=== PATIENT | female | born 1940 | race Caucasian/White ===

== ENCOUNTER 2018-09-28 18:12 | Inpatient (IN) | payer OTHER ==
[~2018-09-28] VITALS: Ht 152.4 cm; Wt 45.4 kg
[~2018-09-28 18:12] MED LIST: ABILIFY 2 MG2 M1 PO; ACCUNEB SO1.25 MG/1 INH; ACETAMINOPHEN325 M1 PO; ALBUTEROL2.5 MG/31 INH; ALBUTEROL2.5 MG/32 IH; ARICEPT10 M1 PO; ATIVAN0.5 MG PO; ATROVENT15 ML NS; BUSPAR 5 MG TABL5 M1 PO; BUSPIRONE HCL7.5 MG PO; BUSPIRONE PO; CARVEDILOL3.125 MG PO; COLACE 100 MG100 MG PO; COMBIVENT INH; DILANTIN100 MG PO; DILTIAZEM ER120 M1 PO; DIVALPROEX SOD250 M3 PO; DOLOPHINE HCL10 MG PO; DOLOPHINE HCL5 MG PO; DUONEB 2.5-0.5 M3 ML INH; FERRO-TIME325 MG PO; IBUPROFEN 600600 M1 PO; LASIX 40 MG TAB40 M1 PO; LEXAPRO20 MG PO; LIPITOR 40 MG T40 M1 PO; MAG DELAY64 MG PO; MELADOX3 MG PO; MIRALAX255 GM PO; OXECTA5 MG PO; PRINIVIL10 MG PO; PROTONIX40 M2 PO; PULMICORT0.5 MG/22 INH; QUETIAPINE FUM100 MG PO; QUETIAPINE FUMA50 MG PO; SPIRIVA INH; THERA-M CAPLET1 EAC1 PO; TRAZODONE 150150 M1 PO; Trazodone PO; ZOFRAN8 MG PO; [UNRECOGNIZED DRUG - OTHER] TOP; [UNRECOGNIZED DRUG - OTHER] TOP
--- NOTE | 2018-09-28 23:47 | NUR ---
PT ARRIVED ON UNIT 204409/28/18 PER CART FROM [facility] PT CONFUSED, CONFRONTATIONAL, AND ARGUMENTATIVE UPON ARRIVAL. REFUSING TO ANSWER ANY QUESTIONS TO WHY SHE IS HERE. RECENT HX INCLUDES INCREASING ANXIETY AND INSOMNIA. ANGRY OUTBURSTS AT THE CARE CENTER. OCCASIONALLY COMBATIVE. MEDICAL HX INCLUDES ARTHRITIS WITH CHRONIC PAIN, HTN,DYSPHAGIA,COPD,HYPERLIPIDEMIA, AND UNSPECIFIED CONVULSIONS. NUMEROUS MEDICATIONS NOTED AND CLARIFIED. NEEDS RT CONSULT. USES INHALERS AT REHAB FACILITY. ABLE TO AMBULATE, BUT REFUSES TO USE WALKER AND WILL NOT ACCEPT PHYSICAL ASSIST WITHOUT ARGUMENT. EXPRESSED SOME RACIAL ANIMAS TOWARD STAFF.
[2018-09-29 01:02] VITALS: BP 184/98
[2018-09-29 01:18] VITALS: BP 184/98
[2018-09-29 08:00] VITALS: BP 171/95
--- NOTE | 2018-09-29 15:44 | NUR ---
DYSPHORIC/RESTLESS MOOD SO FAR THIS [id number] COOPERATIVE WITH MEDS AND REQUESTS FROM STAFF-REFUSED AM POTASSIUM,MAALOX AND FLU SHOT SCHEDULED FOR 0900 STATING "I DON'T HAVE ANY OF THOSE PROBLEMS WITH POTASSIUM OR THE FLU" ATTEMPTS TO EXPLAIN/EDUCATE MET WITH RESISTANCE AND APPEAR TO INCREASE AGITATION-PT STATES "I DON'T TRUST YOU-YOU DON'T KNOW ME HOW DO YOU KNOW WHAT I TAKE" PACING ALMOST CONSTANTLY IN HALLWAYS-TRYING EXIT DOORS REPEATDLY AND STATING SHE WANTS TO "GO OUTSIDE" JUST FOR A MINUTE-YOU CAN COME ALONG" ANXIOUS FACIAL EXPRESSION-PURSE LIPPED BREATHING AT TIMES AND REFUSES TO SIT AND REST WHEN ATTEMPTS MADE TO REDIRECT BY NURSING STAFF STATES " I WOULD KNOW IF I AM TIRED AND IM NOT" HAS REPORTED BACK PAIN RATED A 10 ON 1-10 SCALE-SCHEDULED METHADONE APPEARS TO DECREASE PAIN LEVEL BUT WITHIN 2 HRS OF ADMINISTRATION IS ASKING FOR MORE MEDICATION. TEARFUL WHEN SPEAKING ABOUT FAMILY MEMBERS WHO HAVE - NOTED ABOVE DOES APPEAR SUSPICIOUS OF STAFF-AND MEDICATIONS OFFERED STATING THEY WERN'T HERS, NO NOTED AUDITORY VISUAL HALLUCINATIONS PRESENT.
[2018-09-29 19:39] VITALS: BP 135/79
[2018-09-30 02:35] VITALS: BP 135/79
--- NOTE | 2018-09-30 03:02 | NUR ---
PT OUT IN DAY AREA INTERACTING WITH PEERS. INVASIVE AND OCCASIONALLY IRRITABLE. DEMANDING SHE GET HER MEDS EARLY "BECAUSE I AM IN PAIN AND WANT TO GO TO SLEEP". TOOK MEDS TO HER AFTER SNACKS, WHILE SHE WAS READING IN HER ROOM. BECAME TEARFUL WHEN TALKING HOW SHE MISSES FAMILY LONG ."I MISS THEM ALL". TOOK HS MEDS INCLUDING METHADONE FOR HER PAIN. OUT OF ROOM WITH WALKER ABOUT 30 MINUTES LATER CLAIMING TO STILL BE IN PAIN. ADVISED TO RETURN AND LIE DOWN AND GIVE MED A CHANCE TO WORK. ADVISED SHE COULD STILL HAVE TYLENOL NEEDED. RETURNED TO ROOM AND ALMOST IMMEDIATLY TO SLEEP. REMAINS ASLEEP OF THIS WRITING.
[2018-09-30 07:00] VITALS: BP 146/77
--- NOTE | 2018-09-30 13:13 | NUR ---
ASSUMED CARE AT 0715. HAS BEEN UP ON THE UNIT MUCH OF THE DAY. HAS BEEN INTERACTIVE WITH STAFF. HAD LABS DRAWN WITH USE OF THE DOPPLER AND THE IV TEAM HER VAINS WOULD ROLL WHEN LAB ATTEMPTED TO DRAW THEM. PT. UPSETS EASILY WHEN NOT ALLOWED TO DO SHE THINKS SHE DESIRES TO DO. TOOK MEDS WITHOUT PROBLEMS. ATE MEALS. REMAINS NEEDY AND ASKING FOR COMPANY OF STAFF/PEERS CONTINOUSLY.
[2018-09-30 13:16] LABS: ABSOLUTE NEUTROPHILS 2.9 thou/uL (1.4-8.2); BASOPHILS 0.7 % (0.0-2.0); EOSINOPHILS 3.2 % (0.0-3.0); HEMOGLOBIN 13.9 gm/dL (12.0-15.0); LYMPHOCYTES 26.8 % (24.0-44.0); MCH 32.6 pg (26.0-34.0); MCHC 33.9 g/dL (28.0-37.0); MONOCYTES 8.4 % (1.0-8.0); PLATELET COUNT 295 thou/uL (150-400); POLYS 60.9 % (36.0-66.0); RBC 4.28 mil/uL (4.20-5.00); RDW 12.9 % (10.5-14.5); WBC 4.7 thou/uL (4.0-11.0)
[2018-09-30 13:35] LABS: ALBUMIN 3.6 g/dL (3.4-5.0); CALCIUM 8.7 mg/dL (8.5-10.1); CREATININE 0.9 mg/dL (0.6-1.0); POTASSIUM 4.3 mmol/L (3.5-5.1); TOTAL BILIRUBIN 0.3 mg/dL (<0.1-1.0); TOTAL PROTEIN 7.5 g/dL (6.4-8.2)
[2018-09-30 13:36] LABS: URINE BILIRUBIN NEGATIVE (Negative); URINE BLOOD NEGATIVE (Negative); URINE CLARITY CLEAR; URINE COLOR YELLOW; URINE GLUCOSE-RANDOM* NEGATIVE (Negative); URINE KETONES NEGATIVE (Negative); URINE LEUKOCYTES-REFLEX NEGATIVE (Negative); URINE NITRITE-REFLEX NEGATIVE (Negative); URINE PROTEIN (DIPSTICK) NEGATIVE (Negative); URINE SPECIFIC GRAVITY 1.015 (1.005-1.035); URINE UROBILINOGEN 0.2 E.U./dl (0.2-1.0)
[2018-09-30 20:02] VITALS: BP 144/68
--- NOTE | 2018-10-01 05:05 | NUR ---
NOTED TO BE VISITING WITH FEMALE PEER IN DAYROOM UPON INITAL CONTACT THIS PM-APPEARS COMFORTABLE IN MILLEU AND SITTING QUIETLY FOR APPROX 15-20 MINUTES BEFORE GETTING UP AND PACING SHORT DISTANCE IN HALLWAYS-WHEN APPROACHED FOR HS MEDICATIONS CONVERSATION IS SOMATICALLY FOCUSED WITH NOTED INCREASE IN ANXIETY AND RESTLESSNESS-BECOMES IRRITATED/FRUSTRATED WHEN ASKED WHAT NON-MEDICATION PAIN STRATAGIES ARE USED-INSTRUCTED ON DEEP BREATHING EXCERCISE TO ASSSIT WITH PAIN MANAGEMENT TO WHICH SHE REPLIES "THAT DOESN'T WORK" BEFORE WALKING AWAY. WALKING IN HALLWAYS TRYING EXIT DOORS UNTIL APPROX 2230 WHEN WENT TO ROOM AND GOT IN BED-HAS APPEARED TO REST WITH EYES CLOSED IN LONG INTERVALS SINCE APPROX 2300.
[2018-10-01 07:30] VITALS: BP 133/67
[2018-10-01 16:38] VITALS: BP 133/67
--- NOTE | 2018-10-01 16:52 | NUR ---
ASSUMED CARE AT 0715 THIS MORNING. WAS ASLEEP AND SLEPT THROUGH BREAKFAST. GOT UP ABOUT 0930, TOOK HER MEDICATIONS WITHOUT PROBLEMS. CONTINUES TO REFUSE MAGNESIUM HYDROXIDE ( INFORMED OF THIS). CONTINUES TO BE LABILE EVIDENCED BY SMILING ONE MINUTE, UPSET AND ANGRY THE NEXT, CRYING AND WHINING THE NEXT. SHE TOOK HER MEDICATIONS WITH MUCH COAXING FROM THE STAFF. HAS AMBULATED WITH WALKER AROUND THE UNIT, BECOMING INTRUSIVE WITH OTHER PEERS AND THEIR FAMILIES. SPOKE WITH DR. GONZALES TODAY.
--- NOTE | 2018-10-01 17:11 | EKG ---
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 Hand: Rubi BRAUN : 1940 Requested By: Gentry Purcell Order Number: [id number] MD: Caleb Ding Measurements Intervals [place] Rate: 61 P: 81 [place]: 189 QRS: 35 QRSD: 131 T: 218 QT: 461 QTc: 465 Interpretive Statements Sinus rhythm Left bundle branch block Compared to ECG 06/24/2013 23:07:15 No significant changes Electronically Signed On 10-01-2018 17:10:55 CDT by Caleb Ding [email or web address] ��������������������������������������������� <ELECTRONICALLY SIGNED> ���������������������������������������� By: Caleb Ding MD, [facility] ��������������������������������������������� 10/01/18 171 29 29 Caleb Ding MD, [facility] /EPI
[2018-10-01 19:19] VITALS: BP 113/71
[2018-10-01 23:03] VITALS: BP 113/71
--- NOTE | 2018-10-02 04:53 | NUR ---
PT REMAINS GUTIERREZ AND IRRITABLE AT TIMES, AND OTHER TIMES SMILING AND COOPERATIVE. TOOK HS MEDS W/O PROBLEM. SEEMS OBSESSED WITH HER "LOST BOOK". OUT WITH PEERS EARLY AND WENT TO BED FOLLOWING SNACKS AND MEDS.
[2018-10-02 08:25] VITALS: BP 90/55
--- NOTE | 2018-10-02 15:10 | NUR ---
PATIENT WAS ASLEEP WHEN CARE ASSUMED, SHE DID NOT WANT TO GET UP FOR BREAKFAST " I JUST WANT OT SLEEP" BUT, WITH LOTS OF ENCOURAGEMENT FROM THIS RN, SHE GOT OUT OF BED AND ATE GOOD BREAKFAST, CONSUMED 100%. PATIENT JUST TOOK A FEW BITES OF LUNCH, PATIENT REFUSED SOME OF HER MEDICATION TODAY. PATIENT IS FORGETFUL, AND CONFUSED, SHE HAS BEEN VERY EMOTIONAL TODAY INTERMITTENTLY CRYING " I JUST WANT TO TALK TO MY DAUGHTER". HER DAUGHTER DON CALLED BY THIS RN TO LET HER KNOW PATIENT WANTS TO SPEAK WITH HER, SHE STATES " I WILL CALL HER BACK I AM IN A MEETING RIGHT NOW" PATIENT NOTIFIED. MOOD IS SAD, AFFECT IS DEPRESSED. POOR EYE CONTACT. PATIENT DENIES SUICIDAL AND HOMOCIDAL IDEATION. PATIENT PARTICIPATES IN GROUP OF CHOICE, NO AGGRESSION OF AGITATION NOTED. PATIENT CAN BE IRRITABLE INTERMITTENLY, WILL MONITOR FOR SAFETY.
--- NOTE | 2018-10-02 20:10 | NUR ---
ASSUMED CARE OF THE PT AT 1945PM. ALERT ET ORIENTED X 2. MAKES NEEDS KNOWN. STATED THAT HER BACK IS HURTING HER. DENIES ANXIETY AND DEPRESSION. DENIES SI AND HI CURRENTLY. DENIES A/V HALLUNICATIONS. REMAINS ON 12 MINUTE CHECKS FOR HER SAFETY.
[2018-10-02 20:12] VITALS: BP 113/70
--- NOTE | 2018-10-03 03:54 | NUR ---
THE PT WAS CRYING EARLIER IN THE SHIFT, WHILE SHE WAS WALKING UP AND DOWN THE HALLWAY, PRIOR TO GOING TO BED. REASSURED THE PT. SHE CURRENTLY HAS BEEN SLEEPING AT THIS TIME. REMAINS ON 12 MINUTE CHECKS FOR HER SAFETY.
--- NOTE | 2018-10-03 06:38 | NUR ---
THE PT SLEPT 7 HOURS LAST NIGHT. TOOK HER AM MEDICATIONS WITHOUT ANY DIFFICULTY.
[2018-10-03 12:28] VITALS: BP 151/74
[2018-10-03 18:42] VITALS: BP 127/78
[2018-10-03 20:22] VITALS: BP 122/70
--- NOTE | 2018-10-03 22:31 | NUR ---
ASSUMED CARE OF THE PT AT 1945 PM. ALERT ET ORIENTED X 2. MAKES NEEDS KNOWN. TOOK HER MEDICATIONS WITHOUT ANY DIFFICULTY. WALKS WITH A WALKER, REFUSED TO CHANGE CLOTHING WHEN SHE SENT TO BED. DENIES ANXIETY, DEPRESSION, A/V HALLUNICATIONS, DENIES SI/HI. VERY DEMANDING IF HER MEDICATIONS ARE NOT GIVEN SOON SHE REQUESTS THEM. REMAINS ON 12 MINUTE CHECKS. FOR HER SAFETY.
[2018-10-04 05:53] VITALS: BP 101/48
--- NOTE | 2018-10-04 06:04 | NUR ---
THE PT SLEPT 6 HOURS LAST NIGHT, CHECKED THE PT'S BLOOD PRESSURE AND IT WAS 101/48, WILL HOLD HER LISINOPRIL THIS AM.
[2018-10-04 09:54] VITALS: BP 126/70
[2018-10-04 15:04] VITALS: BP 126/70
--- NOTE | 2018-10-04 15:36 | NUR ---
YOEL met with pt daughter Dr. Jazzy Partida concerning discharge plan to another facility due to her mother not been taken care of during her stay. Pt daughter was not informed that the facility would be potentially closing, she did stated that pt has been leaving drastically within the last couple of days. YOEL will send 3 referrals to nursing facilities that accept memory care pt.
--- NOTE | 2018-10-04 18:13 | NUR ---
7a-7p: Ambulates to DR with assist of walker, gait steady, participates in meals, minimal participation with therapy or groups. Resistant to this nurse providing care, states "I will do it for someone else." Allows VS to be completed by this nurse, becomes verbally aggressive with staff when re-direction or instruction given. Dtr. Helga here, encouraged patient to take medications, eat and participate in groups, patient defiant and verbally aggressive towards dtr. Rec IM Olanzapine 2.5mg x1 this shift for refusing to take po meds, po Olanzapine not given, mild improvement in hostile behavior towards this senior grant writer, positive reflection and re-direction given, without positive results. Rested in room 20 min post IM injection, resting in bed, reading a book.
[2018-10-04 19:59] VITALS: BP 133/72
--- NOTE | 2018-10-04 22:43 | NUR ---
PATIENT ASSESSED AND IS ALERT X 2-3. DOES AMBULATE WITH WALKER TO AND FROM ROOM. HAS A STEADY GAIT. TAKES METHADONE FOR BACK AND LEG PAIN. "I WANT TAPE FOR MY DOOR SO THEY CAN NOT COME IN MY ROOM". NO BEHAVIORS NOTED THIS SHIFT SO FAR. DID TAKE ALL OF HER MEDICATION FOR RN. CONT TO MONITOR BEHAVIOR. IS SLEEPING AT PRESENT TIME. NO SUCIDAL OR HOMICIDAL THOUGHTS VOAICED. SOME DELUSIONS NOTED.
--- NOTE | 2018-10-05 04:21 | NUR ---
PATIENT RESMAINS SLEEPING WELL. NO BEHAVIORS SINCE SHE WENT TO BED. CONT PLAN OF CARE. STAYED IN HER ROOM AFTER SHE HAD TAKEN HER MEDICATION. DENIES ANY NEEDS.
[2018-10-05 07:26] VITALS: BP 134/75
--- NOTE | 2018-10-05 09:35 | NUR ---
PATIENT WAS SOUND ASLEEP WHEN APPROACHED THIS MORNING. AGREEABLE AND ACKNOWLEDGED ON COMING STAFF. ENCOURAGED TO GET UP AND ATTEND BREAKFAST. SLOWLY WAS ABLE TO GET UP AND GET PREPARED - VENTURED OUT IN DINING AREA USING HER WALKER. MAKES NEEDS KNOWN, FAIR APPETITE - MED COMPLIANT AND MADE SURE TO TELL STAFF " I AM NOT SENILE - NO NEED TO REMIND ME TO TAKE MY PILLS." REFUSED HER MILK OF MAGNESIA - TOLERATED MEDICATIONS WELL. PARTICIPATED IN GROUPS - THOUGH FELL ASLEEP AND NODDED OUT HALF WAY THROUGH ACTIVITY. STAFF ATTEMPTED TO AWAKE HER SEVERAL TIMES BUT REMAINED VERY TIRED - STATED WANTED TO GO HOME - NO CURRENT PAIN DISCOMFORT WHEN ASSESSED.
[2018-10-05 19:37] VITALS: BP 121/74
[2018-10-05 22:53] VITALS: BP 121/74
--- NOTE | 2018-10-06 02:52 | NUR ---
PT OUT AND INTERACTING WITH [facility] PEERS. OVERLY CONCERNED IN OTHER PTS BUSINESS, AND WAS ADVISED BY STAFF THAT SHE NEEDS TO FOCUS ON HER OWN NEEDS. TEARFUL AND HOPELESS AT TIMES. STATED THAT IT WOULD BE BETTER IF SHE JUST" DIDN'T WAKE UP." TOOK HS MEDS W/O PROBLEM. SOME C/O PAIN IN HER BACK EARLIER, BUT MUCH BETTER AFTER MEDS. SLEPT WELL THROUGH THE NIGHT.
[2018-10-06 11:44] VITALS: BP 133/67
[2018-10-06 13:04] VITALS: BP 122/55
--- NOTE | 2018-10-06 15:30 | NUR ---
ASSUMED CARE AT 0715 THIS MORNING. WAS IN BED, BUT GOT UP FOR BREAKFAST. OUT FOR MEALS. REFUSED TO GO TO MORNING GROUP WHEN RT ASKED. LATER SHE STATED NO ONE ASKED HER TO GO TO GROUP. TEARFUL THIS AFTERNOON ABOUT MOST EVERYTHING. THIS RN TRIED TO TALK TO HER BUT SHE KEPT CRYING. DID ATTEND AN AFTERNOON GROUP WHERE THEY COLORED. REFUSED SHOWER BUT BEDDING WAS CHANGED. WASHED HER UNDERWEAR. DENIES AH/VH, SI/HI. COOPERATIVE WITH TAKING HER MEDICATIONS. SHE INITIALLY WANTED TO REFUSE HER METHODONE FOR BACK PAIN BUT WAS C/O OF BACK PAIN. SHE TOOK THE MEDICATION AFTER A BRIEF DISCUSSION. ABOUT 1 HOUR LATER SHE WANTED TO KNOW IF SHE HAD ANYTHING ELSE FOR HER BACK PAIN. THIS RN GOT HER TYLENOL AND WHEN I WENT TO GIVE IT TO HER SHE WAS NODDING OUT. SHE DID TAKE THE TYLENOL. UNABLE TO FIND THE ORDER FOR TORDOL ON SEP.
[2018-10-06 20:32] VITALS: BP 132/80
--- NOTE | 2018-10-07 01:40 | NUR ---
SUSPICIOUS OF THIS NURSE WHEN APPROACHED WITH HS MEDICATIONS-STATES "THIS ISN'T RIGHT IT IS WAY TOO MUCH" STARTED PICKING OUT VARIOUS MEDS AND WAS HOLDING THEM IN HAND OR TRYING TO PUT THEM I N POCKET-WHEN CONFRONTED AND ASKED TO HAND THIS NURSE MEDICATIONS SHE DID NOT WANT TO TAKE STATES "WHY DO YOU WANT TO GET RID OF THEM SO QUICK-I DON'T TRUST YOU" AFTER APPROX 10-15 MINUTES DID RELUCTANTLY HAND 4 DEPAKOTE TABS TO THIS RN AND WITNESSED SWALLOWING REST OF HS MEDS-RESISTIVE WITH MOUTH CHECK INITALLY BUT DID EVENTUALLY COMPLY-APPROX 20 MINUTES LATER COME TO NURSING STATION AND BEGAN POUNDING ON GLASS STATING "GIVE ME THE REST OF THE MEDICINES YOU TOOK FROM ME" AND DID THEN SWALLOW REMAINING DEPAKOTE TABLETS-IRRITABLE,ANGRY MOOD AND AFFECT.REFUSES TO ANSWER MANY QUESTIONS DURING PM ASSESSMENT STATING "YOU ALREADY KNOW-DON'T PRETEND"
--- NOTE | 2018-10-07 10:53 | NUR ---
ASSUMED CARE OF PT @ 0700. PT WAS IN BED AND GOT UP AND ATE BREAKFAST IN DINING ROOM. ATTENDED AM GROUP W/RT & PEERS. COMPLETED AM CARE. PT UPSET SHE COULD NOT FIND GABY PINS -TEARFUL, BUT WAS ABLE TO REGAIN CONTROL WHEN RN TALKED W/HER & REDIRECTED HER. COOPERATIVE W/MEDICATIONS, REFUSED MAALOX "I HAVE HAD A COUPLE OF BM ALREADY TODAY, I DON'T NEED THAT." UP IN HALLWAY, AMBULATING WITH WALKER, GAIT STEADY. NO SI/HI VOICED. ALERT & ORIENTED TO SELF, PLACE. WILL CONTINUE TO MONITOR THROUGHOUT SHIFT.
--- NOTE | 2018-10-07 12:36 | NUR ---
PT RECEIVED PRN TYLENOL FOR COMPLAINTS OF LOWER BACK PAIN 9/10 ON PAIN SCALE. UP IN DINING ROOM EATING LUNCH -REFUSES TO USE DENTURES "THEY HURT MY GUMS." CHEWING FOOD W/O DIFFICULTY. WILL CONTINUE TO MONITOR THROUGHOUT SHIFT.
--- NOTE | 2018-10-07 15:05 | NUR ---
PT ATTENDED AFTERNOON GROUP AND LATER PLAYED CARDS WITH PEER AND STAFF. REPORTS SOME SLIGHT RELIEF OF BACK PAIN W/USE OF METHADONE. PT SMILING SPONTANEOUSLY WHEN INTERACTING WITH PEER. NO ACUTE DISTRESS NOTED. CONTINUE TO MONITOR THROUGHOUT SHIFT.
[2018-10-07 18:08] VITALS: BP 165/92
--- NOTE | 2018-10-07 18:09 | NUR ---
PT PLAYED CONNECT 4 W/STAFF & PEER - PLEASANT, BECOMES TEARFUL AND AGITATED WHEN T/A KIDS AND WHAT SHE WILL DO AND WHERE SHE WILL GO WHEN SHE IS DISCHARGED. DAUGHTER VISITED AND PT BEGAN VISIT SMILING BUT WAS TEARFUL AFTER DAUGHTER LEFT AND STATES FEELS LIKE SHE IS ALONE AND NO ONE CARES ABOUT HER. ATE DINNER IN DINING ROOM SITTING AT TABLE W/PEER - TALKING ABOUT THEIR FAMILIES AND LACK OF SUPPORT THEY FEEL THEY HAVE. PT WALKED HALLS INDEPENDENTLY PACING, CRYING AT TIMES. MOOD LABILE. CONTINUE TO MONITOR THROUGHOUT REMAINDER OF SHIFT.
[2018-10-07 19:36] VITALS: BP 146/66
--- NOTE | 2018-10-08 02:06 | NUR ---
PLEASANT THROUGHOUT PM-VISIBLE IN [place]-INTERACTING WITH PEERS-SPONTANOUES SMILING/CONVERSATION OBSERVED WHEN CONVERSING/SOCIALIZING WITH OTHERS. WAS TEARFUL DURING PM WRAP UP GROUP WHEN SPEAKING ABOUT DAUGHTERS VISIT TODAY-STATING "MY DAUGHTER IS TELLING GOD ONLY KNOWS WHAT ABOUT ME TO THE DOCTOR-TRYING TO CONVINCE HIM THAT I CAN'T TAKE CARE OF MYSELF-ALSO TEARFUL WHEN SPEAKING ABOUT HUSBANDS STATING "I HAVEN'T SLEPT THE NIGHT THROUGH IN THE 3 YEARS HE HAS BEEN GONE" WAS ACCEPTING OF SUPPORT/VALIDATION OF GRIEF AND STATED AFTER GROUP "ITS JUST NICE TO GET IT OUT AND KNOW OTHER PEOPLE UNDERSTAND BECAUSE MY DAUGHTER DOESN'T"USING ROLLER WALKER TO AMBULATE IN HALLWAYS STATING MOVEMENT HELPS CHRONIC BACK PAIN. DOES RATE LOW BACK PAIN A 9 ON 1-10 SCALE PRIOR TO ADMINISTTATION OF SCHEDULED METHADONE,WAS NOTED TO BE SLEEPING APPROX 40 MINUTES AFTER TAKING METHADONE-COMPLIENT WITH HS MEDICATIONS RELUCTANTLY TOOK IRON WITH PROMPTING STATING SHE DOESN'T LIKE TO TAKE IT IT UPSETS STOMACH.
[2018-10-08 07:20] VITALS: BP 112/53
[2018-10-08 10:55] VITALS: BP 112/53
[2018-10-08 14:21] VITALS: BP 136/68
--- NOTE | 2018-10-08 15:56 | NUR ---
ASSUMED CARE AT 0715 TODAY. PT. UP FOR MEALS, ATTENDING GROUPS. SHE WAS COOPERATIVE WITH MEDICATIONS. DENIES SI/HI, AVH. SHE CONTINUES TO BE INTRUSIVE WITH PEERS OFTEN GOING TO THEIR ROOM DOOR AND LOOKING IN. BECOMES A BIT AGITATED WITH STAFF WHEN THEY ATTEMPT TO GET HER TO MOVE AWAY FROM THE DOOR OR AREA.
[2018-10-08 20:08] VITALS: BP 135/68
[2018-10-09 01:09] VITALS: BP 135/68
[2018-10-09 01:12] VITALS: BP 135/68
--- NOTE | 2018-10-09 03:49 | NUR ---
PATIENT SMILING AND CORDIAL. INTERACTING APPROPRIATLY WITH STAFF AND PEERS. REMAINS PERIODICALLY INVASIVE AND SNOOPY. OVERLY CURIOUS ABOUT OTHER PTS BEHAVIOR AND WHAT SHE SEES THEIR NEEDS. RESPONDS NEGATIVELY TO REDIRECTION, AND ENCOURAGEMENT TO FOCUS ON HERSELF AND NOT THE OTHER PTS. TOOK HSMEDS AND RETURNED TO HER ROOM. SLEPT WELL THROUGH THE NIGHT.
[2018-10-09 19:53] VITALS: BP 126/57
[2018-10-10 00:35] VITALS: BP 126/57
--- NOTE | 2018-10-10 04:35 | NUR ---
PT RELAXED THIS PM. OUT WITH STAFF AND PEERS, WATCHING TV. TOOK HS MEDS PRESCRIBED. OUT OF ROOM X1 TO ASK FOR TYLENOL FOR HER "SORE BACK". RETURNED TO ROOM AND SLEPT THE REMAINDER OF THE NIGHT.
--- NOTE | 2018-10-10 15:58 | NUR ---
ASSUMED CARE AT 0715 TODAY. PT. UP FOR MEALS, GROUPS. HAS BEEN PLEASANT AND COOPERATIVE WITH STAFF AND PEERS. COMPLIANT WITH MEDICATIONS. DENIES SI/HI, AVH. BED CHANGED, BUT SHE REFUSED SHOWER. STATES HER BACK DOES NOT HURT MUCH TODAY IT DID YESTERDAY ONLY GIVING IT A 7 ON A SCALE OF 1-10. HAS NOT ASKED FOR TYLENOL PRN OF THIS WRITING.
[2018-10-10 20:27] VITALS: BP 152/80
--- NOTE | 2018-10-11 00:20 | NUR ---
OBSERVED SITTING IN DAYROOM WITH MALE PEER UPON INITAIL APPROACH THIS PM-GREETED THIS NURSE PLEASANTLY AND IS NOTED TO BE SMILING AND INTERACTING SPONTANEOUSLY. DURING 1 ASSESSMENT REPORTS FEELING ANXIOUS REGARDING PENDING DC TOMORROW-STATES SHE WAS NOT SURE WHERE SHE WAS GOING AFTER DC FROM HERE AND STATES "I WORRY ABOUT GETTING ALONG WITH MY DAUGHTER" DOES SHOW IMPROVED INSIGHT AND AWARENESS OF BEHAVIORS/RESPONSES THAT HAVE CONTRIBUTED TO CONFLICT IN PAST AND STATES "WHEN I START TO WORRY AND GET INTO A "STATE"I KNOW I MAKE THINGS WORSE"WAS ABLE TO ID SEVERAL COPING SKILLS THAT SHE LEARNED HERE STATING "I DIDN'T THINK I WOULD LIKE THE GROUPS BUT THEY HELPED ALOT" WAS ON VERGE OF TEARS X1 DURING BUT DESCRIBES MOOD "MUCH BETTER" DENIES SI/SH/HI. RATES BACK PAIN 8 ON 1-10 SCALE STATING" THAT IS BETTER THAN IT USUALLY IS" "
[2018-10-11 08:22] VITALS: BP 128/78
[2018-10-11] MEDS ORDERED: LISINOPRIL2.5 MG PO (10:02)
--- NOTE | 2018-10-11 10:02 | NUR ---
Patient Name: JOANN NOLEN Admission Date: 09/28/18 DISCHARGE PLAN: Pt will be discharge to [facility] Assessment: Pt was assessed by Dr. 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 Level II Assessment: None Transportation: Pt will be discharge through [facility]. Special Instructions/Notes: DISCHARGE TO FACILITY: Memory care unit Facility: [facility] Fax: Address: [address] [place] [address] Contact Name: Lorraine PCP: [facility] Psychiatrist: [facility]
[2018-10-11] MEDS ORDERED: ZYPREXA 5 MG TAB5 M1 PO (10:04)
[2018-10-11] MEDS ORDERED: REMERON 30 MG T30 M1 PO (10:04)
[2018-10-11] MEDS ORDERED: K-DUR 20 MEQ T20 MEQ PO (10:05)
[2018-10-11] MEDS ORDERED: TIMOLOL MA0.25 %/52 OPHTHALMIC (10:06)
[2018-10-11] MEDS ORDERED: LATANOPROST2.5 ML OPHTHALMIC (10:07)
[2018-10-11] MEDS ORDERED: SENNA8.6 MG PO (10:07)
--- NOTE | 2018-10-11 12:29 | NUR ---
ASSUMED CARE AT 0715. PT. IN BED BUT GOT UP FOR BREAKFAST. ATTENDED MORNING GROUPS. COMPLIANT WITH MEDICATIONS. SHE VERBALIZED UNDERSTANDING OF LEAVING THE HOSPITAL TODAY, BUT WAS SOMEWHAT SAD. SHE STATED SHE ACTUALLY LIKE IT HERE AND THOUGHT THE STAFF WENT ABOVE AND BEYOND FOR HER. HER BELONGINGS WERE GATHERED, SHE SIGNED THE PAPERWORK. THE TRANSPORTATION DID ARRIVE AT 1215. SHE WENT IN A W/C ALONG WITH HER BELONGINGS, DISCHARGE PACKET. SHE SAID HER GOODBYES AND LEFT WITHOUT PROBLEMS.
--- NOTE | 2018-10-12 08:54 | D ---
[facility] [place] [address] DISCHARGE SUMMARY Name: JOANN NOLEN Room #: 528B-B [facility] IN M.R.#: [id number] Admission: 09/28/18 ������������������ Attend Phys: Gentry Purcell DO Discharge: 10/11/18 ������������������ Date of : 42 Report #: [id number] THIS REPORT FOR: //name// CC: Gentry Purcell Ronnie Novak DATE OF SERVICE: 10/11/2018 ATTENDING: Gentry Purcell DO. inbound sales consultant at the time discharge would be Albin Henley M.D. DISCHARGE DIAGNOSES: Major neurocognitive disorder, likely multifactorial due to Alzheimer disease and history of alcoholism up to and prior to 2008 with behavioral disturbance improved. Medical comorbidities include hypertension, stable congestive heart failure, stable left bundle-branch block, new onset, the DPOA declined further workup for that; hyperlipidemia, COPD, chronic pain, she is on methadone. DISCHARGE DIET: Regular. ACTIVITY LEVEL: As tolerated. DISCHARGE MEDICATIONS: As follows: Lisinopril 2.5 mg oral daily for hypertension, mirtazapine 30 mg p.o. at bedtime for sleep and as antidepressant, olanzapine 5 mg p.o. b.i.d. for mood stabilization, potassium chloride 20 mEq p.o. daily supplementation, drop ophthalmic daily for intraocular hypertension, latanoprost 1 drop ophthalmic daily for cirrhosis of the eyes, and senna 8.6 mg p.o. b.i.d. Additionally, tiotropium bromide that is Spiriva inhaler for COPD, diltiazem 120 mg p.o. daily for CHF, hypertension, Coreg 3.125 mg p.o. b.i.d. for hypertension, atorvastatin 40 mg p.o. daily for hyperlipidemia. She has p.r.n. DuoNebs ordered, multivitamin daily, as well as methadone 10 mg p.o. b.i.d. for chronic pain, ferrous sulfate 325 mg p.o. b.i.d. for iron deficiency, Tylenol 650 mg p.o. q.4 hours p.r.n. for breakthrough pain and Protonix 40 mg p.o. daily at 0700 for GERD, also Colace 100 mg p.o. b.i.d. for constipation. Medications that were stopped this admission included Dilantin as well as Seroquel and buspirone. LABORATORIES: This admission, CBC was within normal limits except elevated monocyte percentage of 8.4 and eosinophilia of 3.2%. Chemistries, this admission on 09/30, sodium 135, potassium 4.3, chloride 99, bicarbonate 29, anion gap 7, BUN 18, creatinine 0.9, estimated GFR 61, glucose 119, calcium 8.7, total bilirubin 0.3, AST 12, ALT 13, alkaline phosphatase 98, total protein 7.5, albumin 3.6. TSH 0.763. Urinalysis was negative. The patient had Depakote levels done on 09/30 it was 64 and it looks like she had levels on of 58 and 54, it was either repeats by duplicate order most likely. Nonetheless, she [address] [address] DISCHARGE SUMMARY Name: JOANN NOLEN Room #: 528B-B DIS IN ..#: [id number] Admission: 09/28/18 ������������������ Attend Phys: Gentry Purcell, DO Discharge: 10/11/18 ������������������ Date of : 42 Report #: [id number] was within therapeutic range for her valproic acid level. She is discharging to the [facility] where she is currently in the memory of care; however, her DPOA is aware that she requires 24/ supervision. REASON FOR ADMISSION: As follows. A 78-year-old female brought to the facility for increased confusion and agitation at her long-term care facility. HOSPITAL COURSE: The patient was admitted to the psychiatry unit. Initially, Seroquel was used and she was changed over to olanzapine regimen. Her Depakote was titrated to effect. From speaking with her daughters, there was not a good reason for her to be on Dilantin, so that was quickly tapered. Dilantin and Depakote combination is concern because Depakote is an inhibitor; however, Dilantin metabolism and could lead to supratherapeutic levels. At the time of discharge, the patient was not suicidal or homicidal, was cooperative with staff. Vital signs on the day of discharge is as follows: Pulse 105, BP 128/78. It looks like no temperature was taken. Musculoskeletal exam, the patient is kyphotic, slowed, does ambulate with a walker. MENTAL STATUS EXAMINATION: This is a well-developed, fairly nourished female appearing at least stated age. Attention limited, concentration limited. Speech slowed. Thought process linear, but limited response at times. Thought content focused on pain medication fair amount. No psychomotor agitation. No psychomotor retardation. Denied auditory or visual type hallucination. Denied suicidal intent or plan. Denied hopelessness or helplessness. Denied homicidal intent or plan. Memory known to be impaired. Insight limited. Judgment limited. Fund of knowledge below average. The patient's SLUMS this admission was within dementia range, it was not known until later in the admission about the patient's history of alcoholism and the need for the patient being in a structured environment and be supervised was emphasized to her daughters Nory and Jane. Prognosis for this patient is guarded given her age, the dementia and her overall physical health. ��������������������������������������������� <ELECTRONICALLY SIGNED> ���������������������������������������� By: Gentry Purcell DO ��������������������������������������������� 10/12/18 [id number] Gentry Purecll DO /nt
== END 2018-10-11 12:30 | DRG 57 ==
LOC: SBH 18:12
PROVIDERS: ADMIT Psychiatry & Neurology Psychiatry
DX: G30.9 Alzheimer's disease, unspecified (principal); F01.50 Vascular dementia, unspecified severity, without behavioral disturbance, psychotic disturbance, mood disturbance, and anxiety; E78.5 Hyperlipidemia, unspecified; J44.9 Chronic obstructive pulmonary disease, unspecified; G89.29 Other chronic pain; M54.9 Dorsalgia, unspecified; I50.9 Heart failure, unspecified; F31.9 Bipolar disorder, unspecified; I44.7 Left bundle-branch block, unspecified; I11.0 Hypertensive heart disease with heart failure; Z66 Do not resuscitate; Z23 Encounter for immunization; Z87.891 Personal history of nicotine dependence; Z79.899 Other long term (current) drug therapy
CPT/HCPCS: 10880